=== PATIENT | male | born 1940 | race Native Hawaiian/Other Pacific Islander ===

== ENCOUNTER 2019-01-02 19:51 | Observation (INO) | payer MEDICARE, OTHER ==
--- NOTE | 2019-01-02 20:02 | Emergency Department Report ---
Blank Doc - Documentation Documentation: 78-year-old male that presents with slurred speech, abnormal gait, and some what altered. Granddaughter stated this happened intermittently 3 times today and came to the ED. This initial assessment/diagnostic orders/clinical plan/treatment(s) is/are subject to change based on patient's health status, clinical progression and re- assessment by fellow clinical providers in the ED. Further treatment and workup at subsequent clinical providers discretion. Patient/guardians urged not to elope from the ED as their condition may be serious if not clinically assessed and managed. Initial orders include: 1- Patient sent to MAIN ED for further evaluation and treatment 2- code stroke initiated
[2019-01-02 20:21] LABS: Hematocrit 38.3 % (35.5-45.6); Hemoglobin 13.1 gm/dl (11.8-15.2); Lymphocytes % (Auto) 23.6 % (13.4-35.0); Mean Corpuscular HGB Conc 34 % (32-34); Mean Corpuscular Volume 95 fl (84-94); Platelet Count 240 K/mm3 (140-440); Red Blood Count 4.03 M/mm3 (3.65-5.03); Red Cell Distribution Width 13.3 % (13.2-15.2)
[2019-01-02 20:22] LABS: Basophils % (Auto) 0.2 % (0.0-1.8); Eosinophils # (Auto) 0.1 K/mm3 (0.0-0.4); Eosinophils % (Auto) 1.2 % (0.0-4.3); Lymphocytes # (Auto) 2.1 K/mm3 (1.2-5.4); Monocytes # (Auto) 0.7 K/mm3 (0.0-0.8); Monocytes % (Auto) 8.4 % (0.0-7.3)
[2019-01-02 20:26] LABS: INR 0.96 (0.87-1.13)
[2019-01-02 20:27] LABS: Partial Thromboplastin Time 27.6 Sec. (24.2-36.6); Thrombin Time 16.8 Sec. (15.1-19.6)
--- NOTE | 2019-01-02 20:42 | Cat Scan Report ---
CT head/brain wo con INDICATION / CLINICAL INFORMATION: 78 years Male; Stroke symptoms. TECHNIQUE: Routine CT head without contrast. All CT scans at this location are performed using CT dos e reduction for ALARA by means of automated exposure control. COMPARISON: None. FINDINGS: BRAIN / INTRACRANIAL CONTENTS: There is milder cerebral white matter disease which is nonspecific tho ugh most compatible with microvascular angiopathy. The findings are greater on the left at. However, there is no clear CT evidence of significant mass effect. There is mild cerebral atrophy with corresp onding mild prominence of the ventricular system. There is no CT evidence of acute intracranial hemor rhage. ORBITS: No significant abnormality of visualized orbits. SINUSES / MASTOIDS: There is sclerosis involving left mastoid air cells likely related to chronic agustina ctive inflammatory changes. CRANIOCERVICAL JUNCTION: No significant abnormality. ADDITIONAL FINDINGS: There is relative soft tissue prominence along the left cavernous sinus which ap pears reflect developmental tortuosity left ICA. IMPRESSION: 1. 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 The study was specified as code stroke and called emergently to Dr. Fraga in the ER at 7:35 PM [facility] standard time. Signer Name: Rafael Moncada MD Signed: 01/02/2019 8:37 PM Workstation Name: [id number]
[2019-01-02 20:49] LABS: Alanine Aminotransferase 15 units/L (7-56); BUN/Creatinine Ratio 28; Blood Urea Nitrogen 28 mg/dL (9-20); Calcium 9.6 mg/dL (8.4-10.2); Creatine Kinase MB 5.1 ng/mL (0.0-4.0); Hemolysis Index 29
[2019-01-02] MEDS ORDERED: ASPIRIN 81 MG TAB CHEW PO ONE (21:03)
--- NOTE | 2019-01-02 21:30 | Emergency Department Report ---
HPI - General Chief Complaint: Neuro Symptoms/Deficit Time Seen by Provider: 01/02/19 20:13 - HPI HPI: 78-year-old male presents to the emergency department from home as a code stroke. Per the family, the patient has been having some slurred speech and confusion. The exact last known well time is debatable. Family says that there were some signs of confusion earlier in the day. For example, the patient's says that he turned to left when he meant to turn right. There also may have been some slurred speech earlier in the day as well. However it sounds like there was some level of resolution. At around 6 PM this evening family noticed the slurred speech and confusion and brought him in for further evaluation. He has a past medical history of insulin-dependent diabetes. ED Past Medical Hx - Past Medical History Previous Medical History?: Yes Hx Diabetes: Yes - Surgical History Past Surgical History?: No - Medications Home Medications: Home Medications Medication Instructions Recorded Confirmed Last Taken Type Aspirin [Aspirin BABY CHEW TAB] 81 mg PO QDAY 01/03/19 01/03/19 01/02/19 History Metformin HCl [metFORMIN] 1,000 mg PO BID 01/03/19 01/03/19 01/02/19 History ED Review of Systems ROS: Stated complaint: POSS STROKE Other details as noted in HPI Comment: All other systems reviewed and negative Constitutional: denies: chills, fever Eyes: denies: eye pain, vision change ENT: denies: ear pain, throat pain Respiratory: denies: cough, shortness of breath Cardiovascular: denies: chest pain, palpitations Gastrointestinal: denies: abdominal pain, vomiting Genitourinary: denies: dysuria, discharge Musculoskeletal: denies: back pain, arthralgia Skin: denies: rash, lesions Neurological: confusion, other (slurred speech) Physical Exam - Physical Exam Vital Signs: Vital Signs 01/02/19 01/02/19 20:01 20:20 Temperature 98.1 F 98.2 F Pulse Rate 72 80 Respiratory 18 15 Rate Blood Pressure 154/68 Blood Pressure 144/75 [Right] O2 Sat by Pulse 97 100 Oximetry Physical Exam: GENERAL: The patient is well-developed well-nourished. HENT: Normocephalic. Atraumatic. Patient has moist mucous membranes. EYES: Extraocular motions are intact. Pupils equal reactive to light bilaterally. NECK: Supple. Trachea is midline. CHEST/LUNGS: Clear to auscultation. There is no respiratory distress noted. HEART/CARDIOVASCULAR: Regular. There is no tachycardia. There is no murmur. ABDOMEN: Abdomen is soft, nontender. Patient has normal bowel sounds. There is no abdominal distention. SKIN: Skin is warm and dry. NEURO: The patient is awake, alert, and cooperative. The patient has no focal neurologic deficits. There is slightly slurred speech. Mild left-sided nasolabial full paresis. No pronator drift. MUSCULOSKELETAL: There is no tenderness or deformity. There is no evidence of acute injury. ED Course Vital Signs 01/02/19 01/02/19 20:01 20:20 Temperature 98.1 F 98.2 F Pulse Rate 72 80 Respiratory 18 15 Rate Blood Pressure 154/68 Blood Pressure 144/75 [Right] O2 Sat by Pulse 97 100 Oximetry - Consultations Consultation #1: This patient was seen by the telemedicine neurologist, Dr. Navas as soon as he returned from CT imaging of the head. The neurologist gave the patient an NIH stroke scale of 3. The decision was made between the family and neurology that TPA should not be given. There is no obvious last known well time and it may have been as early as as this morning. He did not feel that CT angiography of the head and neck was necessary at this time as there is a low suspicion for a large vessel occlusion. However he does recommend admission to the hospital for further stroke workup including MRI of the brain. 01/03/19 03:12 ED Medical Decision Making - Lab Data Result diagrams: 01/02/19 20:05 01/02/19 20:05 - EKG Data -: EKG Interpreted by Mt EKG shows normal: sinus rhythm, axis, intervals, QRS complexes, ST-T waves Rate: normal - EKG Data When compared to previous EKG there are: previous EKG unavailable Interpretation: normal EKG - Radiology Data Radiology results: report reviewed CT head/brain wo con INDICATION / CLINICAL INFORMATION: 78 years Male; Stroke symptoms. TECHNIQUE: Routine CT head without contrast. All CT scans at this location are performed using CT dose reduction for ALARA by means of automated exposure control. COMPARISON: None. FINDINGS: BRAIN / INTRACRANIAL CONTENTS: There is milder cerebral white matter disease which is nonspecific though most compatible with microvascular angiopathy. The findings are greater on the left at. However, there is no clear CT evidence of significant mass effect. There is mild cerebral atrophy with corresponding mild prominence of the ventricular system. There is no CT evidence of acute intracranial hemorrhage. ORBITS: No significant abnormality of visualized orbits. SINUSES / MASTOIDS: There is sclerosis involving left mastoid air cells likely related to chronic reactive inflammatory changes. CRANIOCERVICAL JUNCTION: No significant abnormality. ADDITIONAL FINDINGS: There is relative soft tissue prominence along the left cavernous sinus which appears reflect developmental tortuosity left ICA. IMPRESSION: 1. 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 - Medical Decision Making This patient presents as a code stroke after he had some slurring of his speech and some confusion. They're to fully was a different starting at about 6 PM this evening but there was also some signs of possible confusion earlier in the day. Stat CT scan of the head without contrast was completed that does not show any bleed, ischemic areas or any other acute process. Patient's labs have been unremarkable except for some mild hyperglycemia without signs of diabetic k etoacidosis. He was given a full dose aspirin. Neurology did not feel was necessary to get CTA of the head and neck but does recommend admission for MRI and further evaluation. He was accepted for admission by the hospitalist service and Dr Wyman. - Differential Diagnosis CVA, TIA, Hypoglycemia, Dysrythmia Critical Care Time: No Critical care attestation.: If time is entered above; I have spent that time in minutes in the direct care of this critically ill patient, excluding procedure time. ED Disposition Clinical Impression: Hyperglycemia Stroke Qualifiers: CVA mechanism: unspecified Qualified Code(s): I63.9 - Cerebral infarction, unspecified Disposition: OP ADMIT IP TO THIS HOSP Is pt being admited?: Yes Condition: Fair Time of Disposition: 23:04
--- NOTE | 2019-01-02 22:12 | Emergency Department Report ---
HPI - General Chief Complaint: Neuro Symptoms/Deficit Time Seen by Provider: 01/02/19 20:13 - HPI HPI: [facility] Date of Service: 01/02/2019 20:15:02 History of Present Illness: Patient is a 78 year old Male. Patient was brought by EMS for symptoms of AMS Patient with hx of diabetes on insulin and metformin presents with concern for stroke sxs. He had spell this am with drifting the car to the right rather than keeping straight and acting like he was hard of hearing. It is unclear by daughter if he was completely resolved but she noted a obvious difference around 1800 when he was garbled with his speech and appearing confused. His sxs have improved while in ED but she states he is still slurring his words. On exam he has left facial asymmetry as well but family never made mention of this from flakito salguero and he has slight left arm clumsiness as well and ? numbness. CT scan head was negative per my review and radiology as well. ED Past Medical Hx - Past Medical History Previous Medical History?: Yes Hx Diabetes: Yes - Surgical History Past Surgical History?: No ED Review of Systems ROS: Stated complaint: POSS STROKE Other details as noted in HPI Constitutional: denies: chills, fever Eyes: denies: eye pain, vision change ENT: denies: ear pain, throat pain Respiratory: denies: cough, shortness of breath Cardiovascular: denies: chest pain, palpitations Gastrointestinal: denies: abdominal pain, vomiting Genitourinary: denies: dysuria, discharge Musculoskeletal: denies: back pain, arthralgia Skin: denies: rash, lesions Neurological: confusion, other (slurred speech) Physical Exam - Physical Exam Vital Signs: Vital Signs 01/02/19 01/02/19 20:01 20:20 Temperature 98.1 F 98.2 F Pulse Rate 72 80 Respiratory 18 15 Rate Blood Pressure 154/68 Blood Pressure 144/75 [Right] O2 Sat by Pulse 97 100 Oximetry Physical Exam: CT head showed no acute hemorrhage or acute core infarct. CT head was reviewed. Examination: 1A: Level of Consciousness - Alert; keenly responsive + 0 1B: Ask Month and Age - Both Questions Right + 0 1C: Blink Eyes & Squeeze Hands - Performs Both Tasks + 0 2: Test Horizontal Extraocular Movements - Normal + 0 3: Test Visual Arguelles - No Visual Loss + 0 4: Test Facial Palsy (Use Grimace if Obtunded) - Minor paralysis (flat nasolabial fold, smile asymetry) + 1 5A: Test Left Arm Motor Drift - No Drift for 10 Seconds + 0 5B: Test Right Arm Motor Drift - No Drift for 10 Seconds + 0 6A: Test Left Leg Motor Drift - No Drift for 5 Seconds + 0 6B: Test Right Leg Motor Drift - No Drift for 5 Seconds + 0 7: Test Limb Ataxia (FNF/Heel-Monsivais) - Ataxia in 1 Limb + 1 8: Test Sensation - Normal; No sensory loss + 0 9: Test Language/Aphasia - Normal; No aphasia + 0 10: Test Dysarthria - Mild-Moderate Dysarthria: Slurring but can be understood + 1 11: Test Extinction/Inattention - No abnormality + 0 NIHSS Score: 3 ED Course Vital Signs 01/02/19 01/02/19 20:01 20:20 Temperature 98.1 F 98.2 F Pulse Rate 72 80 Respiratory 18 15 Rate Blood Pressure 154/68 Blood Pressure 144/75 [Right] O2 Sat by Pulse 97 100 Oximetry ED Medical Decision Making - Lab Data Result diagrams: 01/02/19 20:05 01/02/19 20:05 - Medical Decision Making Impression: RO Acute Ischemic Stroke Right Hemispheric Comments: NOT ISACC candidate as exam is not correlating with LVO and nihss 3 Metrics: Last Known Well: 01/02/2019 10:00:00 [facility] Notification Time: 01/02/2019 20:14:32 Arrival Time: 01/02/2019 19:51:00 Stamp Time: 01/02/2019 20:15:02 Time First Login Attempt: 01/02/2019 20:23:00 Video Start Time: 01/02/2019 20:23:00 Symptoms: AMS NIHSS Start Assessment Time: 01/02/2019 22:24:00 Patient is not a candidate for tPA. Patient was not deemed candidate for tPA thrombolytics because of Last Well Known Above 4.5 Hours. Video End Time: 01/02/2019 20:52:00 CT head showed no acute hemorrhage or acute core infarct. CT head was reviewed. Radiologist was not called back for review of advanced imaging because not ordered ER Physician notified of the decision on thrombolytics management on 01/02/2019 20:52:00 Our recommendations are outlined below. Recommendations: Activate Stroke Protocol Admission/Order Set Stroke/Telemetry Floor Neuro Checks Bedside Swallow Eval DVT Prophylaxis IV Fluids, Normal Saline Head of Bed Below 30 Degrees Euglycemia and Avoid Hyperthermia (PRN Acetaminophen) Antiplatelet Therapy Recommended Recommended Scan: MRI Head Without Contrast MRA Head Without Contrast Carotid Dopplers Echocardiogram - Transthoracic Echocardiogram Therapies: Physical Therapy, Occupational Therapy, Speech Therapy Assessment When Applicable Dysphaghia Screen: Swallow Evaluation, Bedside DVT prophylaxis: Choice of Primary Team Disposition: If needed can consider inpatient neurology consultation Sign Out: Discussed with Emergency Department Provider Patient was informed the Neurology Consult would happen via TeleHealth consult by way of interactive audio and video telecommunications and consented to receiving care in this manner. Due to the immediate potential for life-threatening deterioration due to un derlying acute neurologic illness, I spent 35 minutes providing critical care. This time includes time for face to face visit via telemedicine, review of medical records, imaging studies and discussion of findings with providers, the patient and/or family. Dr Filemon Navas [facility] Critical care attestation.: If time is entered above; I have spent that time in minutes in the direct care of this critically ill patient, excluding procedure time. ED Disposition Clinical Impression: Stroke Disposition: -09 OP ADMIT IP TO THIS HOSP Is pt being admited?: Yes Does the pt Need Aspirin: Yes Condition: Stable
[2019-01-02 23:08] LABS: Bilirubin,Urine NEG (Negative); Blood,Urine NEG (Negative); Color,Urine Yellow (Yellow); Mucus,Urine FEW /HPF; Protein,Urine <15 mg/dL mg/dL (Negative); Urobilinogen,Urine < 2.0 mg/dL (<2.0)
[2019-01-02] MEDS ORDERED: MAGNESIUM HYDROXIDE (MOM) ORAL LIQD UDC PO PRN (23:29)
[2019-01-02] MEDS ORDERED: ONDANSETRON 4 MG/2 ML INJ IV PRN (23:29)
[2019-01-02] MEDS ORDERED: ACETAMINOPHEN 325 MG TAB PO PRN (23:29)
--- NOTE | 2019-01-02 23:33 | History and Physical Report ---
History of Present Illness Date of examination: 01/02/19 History of present illness: 78-year-old man at a history of diabetes comes emergency room for evaluation. Family is at bedside states that he was disoriented this morning and while he was taking his to work, he made two left turns instead of going right. At 6 family was noted to have slurred speech, confuse, the symptoms lasted for 30 minutes and then recovered around 7 PM Review Of Systems: Constitutional: no weight loss, fever, chills Ears, eyes, nose, mouth and throat: no nasal congestion, no nasal discharge, no sinus pressure, blurry vision, diplopia Neck: No neck pain or rigidity. Cardiovascular: No palpitations, chest pain Respiratory: No shortness of breath, cough Gastrointestinal: No hematochezia, abdominal pain Genitourinary : no dysuria, frequency Musculoskeletal: no muscle ache , joint pain Integumentary: no rash, no pruritis Neurological: no parathesias, focal weakness Endocrine: no cold or heat intolerance, no polyuria or polydipsia Hematologic/Lymphatic: no easy bruising, no easy bleeding, no gland swelling Allergic/Immunologic: no urticaria, no angioedema. PAST MEDICAL HISTORY:diabetes PAST SURGICAL HISTORY: None FAMILY HISTORY:hypertension, diabetes SOCIAL HISTORY: Denies tobacco, drugs, alcohol Medications and Allergies Allergies Allergy/AdvReac Type Severity Reaction Status Date / Time No Known Allergies Allergy Verified 01/02/19 23:34 Exam - Physical Exam Narrative exam: General Apperance: The patient sitting in bed no acute distress HEENT: Normocephalic, atraumatic. Pupils equally round and reactive to light, extraocular movement intact, and no sclericterus or JVD or thyromegaly or nodul e. Neck supple, no carotid bruit, mucous membranes moist, no exudate or erythema Heart: S1-S2, regular is rhythm Lungs: Clear to auscultation bilaterally, breathing comfortable Abdomen: Positive bowel sounds, soft, nontender, nondistended, no organomegaly Extremities: No edema cyanosis clubbing Skin: no rash, nodule, warm and dry Neuro:CN 2 -12 intact, motor/sensory intact, speech is fluent - Constitutional Vitals: Temp Pulse Resp BP Pulse Ox 98.2 F 80 15 144/75 100 01/02/19 20:20 01/02/19 20:20 01/02/19 20:20 01/02/19 20:20 01/02/19 20:20 Results - Labs CBC & Chem 7: 01/02/19 20:05 01/02/19 20:05 Labs: Abnormal lab results 01/02/19 01/02/19 01/02/19 Range/Units 20:05 20:05 20:12 MCV 95 H (84-94) fl [place] % (Auto) 8.4 H (0.0-7.3) % BUN 28 H (9-20) mg/dL Glucose 221 H (75-100) mg/dL POC Glucose 223 H (70-105) Total Creatine Kinase 211 H (55-170) units/L CK-MB (CK-2) 5.1 H (0.0-4.0) ng/mL - Imaging and Cardiology CT Scan - head: report reviewed Assessment and Plan Assessment CVA Diabetes Plan Admit to medicine Obtain MRI of the head, and neck, echo Start aspirin, statin IV hydralazine as needed for blood pressure control Consult neurology, physical and occupational, speech therapy DVT prophylaxis
[2019-01-02] MEDS: SODIUM CHLORIDE 0.45% 1000 ML 1,000 ML IV SCH (23:45)
[2019-01-03] MEDS ORDERED: DEXTROSE 50% IN WATER (25GM) 50 ML SYRINGE IV PRN (00:24)
[2019-01-03 04:48] LABS: Chol/HDL Ratio 3.16 %
[2019-01-03] MEDS: INSULIN LISPRO 100 UNIT/ML SUB-Q SCH ×4 (08:36→21:39)
[2019-01-03] MEDS ORDERED: ASPIRIN 325 MG TAB PO SCH (10:00)
--- NOTE | 2019-01-03 10:24 | Magnetic Resonance Report ---
MRI BRAIN WITHOUT CONTRAST INDICATION / CLINICAL INFORMATION: stroke. Slurred speech, confusion TECHNIQUE: Multisequence, multiplanar images were obtained. COMPARISON: CT head dated 01/02/2019 FINDINGS: CEREBRAL and CEREBELLAR HEMISPHERES: A 3 mm focus of diffusion restriction is suspected in the inferi or cerebellar vermis on diffusion image 10. No other areas of diffusion restriction are identified. N o evidence for hemorrhage, mass effect, large chronic infarct or extra-axial fluid collection. Mild d iffuse volume loss appears age appropriate. Minimal nonspecific chronic periventricular white matter changes. VENTRICLES: Normal in size and configuration for age. VISUALIZED ORBITS: No significant abnormality. VISUALIZED PARANASAL SINUSES: Mild mucosal thickening is noted throughout all paranasal sinuses. No f luid level or opacification. ADDITIONAL FINDINGS: None. IMPRESSION: 3 mm focus of subacute ischemia in the anterior cerebellar vermis is suspected. Age appropriate volume loss and chronic white matter changes. Signer Name: Yoel Zendejas Jr, MD Signed: 01/03/2019 10:20 AM Workstation Name: [id number]
--- NOTE | 2019-01-03 10:25 | Magnetic Resonance Report ---
MRA HEAD WITHOUT CONTRAST HISTORY: Stroke, confusion, slurred speech COMPARISON: None. TECHNIQUE: Routine MRA of the head is performed. 3-D/MIP reformats postprocessed. CONTRAST: None. FINDINGS: Intracranial vertebral arteries: No significant abnormality. Basilar artery: No significant abnormality. Posterior cerebral arteries: No significant abnormality. Intracranial internal carotid arteries: No significant abnormality. Anterior cerebral arteries: No significant abnormality. Middle cerebral arteries: No significant abnormality. Additional findings: None. IMPRESSION: 1. No significant abnormality. Signer Name: Yoel Zendejas Jr, MD Signed: 01/03/2019 10:21 AM Workstation Name: [id number]
--- NOTE | 2019-01-03 14:33 | Progress Note ---
Assessment and Plan Assessment and plan: CVA - CT head is negative, MRI showed 3 mm focus of subacute ischemia in the anterior cerebellar vermis is suspected - Patient is on aspirin and statin - Echo is normal - Neuro evaluation is pending - PT/OT evaluation is pending Diabetes mellitus - Sliding scale insulin, ADA diet, adjust insulin as needed DVT prophylaxis - SCDs for now. History Interval history: Patient was seen and evaluated this morning, patient symptoms resolved. patient is doing well. Hospitalist Physical - Physical exam Narrative exam: Not in cardiopulmonary distress. The patient appeared well nourished and normally developed. Vital signs as documented. Head exam is unremarkable. No scleral icterus . Neck is without jugular venous distension, thyromegaly, or carotid bruits. Lungs are clear to auscultation. Cardiac exam reveals regular rate and Rhythm. Abdominal exam reveals normal bowel sounds, nontender, no organomegaly. Extremities are nonedematous and both femoral and pedal pulses are normal. FIELD SPECIALIST: Alert and oriented 3. No focal weakness. - Constitutional Vitals: Temp Pulse Resp BP Pulse Ox 98.2 F 65 18 120/56 97 01/03/19 11:21 01/03/19 11:21 01/03/19 11:21 01/03/19 11:21 01/03/19 11:21 Results - Labs CBC & Chem 7: 01/02/19 20:05 01/02/19 20:05 Labs: Laboratory Last Values WBC 8.8 K/mm3 (4.5-11.0) 01/02/19 20:05 RBC 4.03 M/mm3 (3.65-5.03) 01/02/19 20:05 Hgb 13.1 gm/dl (11.8-15.2) 01/02/19 20:05 Hct 38.3 % (35.5-45.6) 01/02/19 20:05 MCV 95 fl (84-94) H 01/02/19 20:05 MCH 32 pg (28-32) 01/02/19 20:05 MCHC 34 % (32-34) 01/02/19 20:05 RDW 13.3 % (13.2-15.2) 01/02/19 20:05 Plt Count 240 K/mm3 (140-440) 01/02/19 20:05 Lymph % (Auto) 23.6 % (13.4-35.0) 01/02/19 20:05 [place] % (Auto) 8.4 % (0.0-7.3) H 01/02/19 20:05 Eos % (Auto) 1.2 % (0.0-4.3) 01/02/19 20:05 Baso % (Auto) 0.2 % (0.0-1.8) 01/02/19 20:05 Lymph # 2.1 K/mm3 (1.2-5.4) 01/02/19 20:05 [place] # 0.7 K/mm3 (0.0-0.8) 01/02/19 20:05 Eos # 0.1 K/mm3 (0.0-0.4) 01/02/19 20:05 Baso # 0.0 K/mm3 (0.0-0.1) 01/02/19 20:05 Seg Neutrophils % 66.6 % (40.0-70.0) 01/02/19 20:05 Seg Neutrophils # 5.9 K/mm3 (1.8-7.7) 01/02/19 20:05 PT 12.7 Sec. (12.2-14.9) 01/02/19 20:05 INR 0.96 (0.87-1.13) 01/02/19 20:05 APTT 27.6 Sec. (24.2-36.6) 01/02/19 20:05 Thrombin Time 16.8 Sec. (15.1-19.6) 01/02/19 20:05 Sodium 138 mmol/L (137-145) 01/02/19 20:05 Potassium 4.9 mmol/L (3.6-5.0) 01/02/19 20:05 Chloride 102.1 mmol/L (98-107) 01/02/19 20:05 Carbon Dioxide 26 mmol/L (22-30) 01/02/19 20:05 Anion Gap 15 mmol/L 01/02/19 20:05 BUN 28 mg/dL (9-20) H 01/02/19 20:05 Creatinine 1.0 mg/dL (0.8-1.5) 01/02/19 20:05 Estimated GFR > 60 ml/min 01/02/19 20:05 BUN/Creatinine Ratio 28 % 01/02/19 20:05 Glucose 221 mg/dL (75-100) H 01/02/19 20:05 POC Glucose 112 (70-105) H 01/03/19 11:26 Calcium 9.6 mg/dL (8.4-10.2) 01/02/19 20:05 Total Bilirubin < 0.20 mg/dL (0.1-1.2) 01/02/19 20:05 AST 18 units/L (5-40) 01/02/19 20:05 ALT 15 units/L (7-56) 01/02/19 20:05 Alkaline Phosphatase 75 units/L (35-129) 01/02/19 20:05 Ammonia 29.0 umol/L (25-60) 01/02/19 20:58 Total Creatine Kinase 211 units/L (55-170) H 01/02/19 20:05 CK-MB (CK-2) 5.1 ng/mL (0.0-4.0) H 01/02/19 20:05 CK-MB (CK-2) Rel Index 2.4 (0-4) 01/02/19 20:05 Troponin T < 0.010 ng/mL (0.00-0.029) 01/02/19 20:05 Total Protein 7.7 g/dL (6.3-8.2) 01/02/19 20:05 Albumin 4.0 g/dL (3.9-5) 01/02/19 20:05 Albumin/Globulin Ratio 1.1 % 01/02/19 20:05 Triglycerides 52 mg/dL (2-149) 01/03/19 03:37 Cholesterol 152 mg/dL (50-199) 01/03/19 03:37 LDL Cholesterol Direct 109 mg/dL (50-130) 01/03/19 03:37 HDL Cholesterol 48 mg/dL (40-59) 01/03/19 03:37 Cholesterol/HDL Ratio 3.16 % 01/03/19 03:37 TSH 2.150 mlU/mL (0.270-4.200) 01/02/19 20:58 Urine Color Yellow (Yellow) 01/02/19 22:50 Urine Turbidity Slightly-cloudy (Clear) 01/02/19 22:50 Urine pH 7.0 (5.0-7.0) 01/02/19 22:50 Ur Specific [place] 1.019 (1.003-1.030) 01/02/19 22:50 Urine Protein <15 mg/dl mg/dL (Negative) 01/02/19 22:50 Urine Glucose (UA) Neg mg/dL (Negative) 01/02/19 22:50 Urine Ketones Neg mg/dL (Negative) 01/02/19 22:50 Urine Blood Neg (Negative) 01/02/19 22:50 Urine Nitrite Neg (Negative) 01/02/19 22:50 Urine Bilirubin Neg (Negative) 01/02/19 22:50 Urine Urobilinogen < 2.0 mg/dL (<2.0) 01/02/19 22:50 Ur Leukocyte Esterase Neg (Negative) 01/02/19 22:50 Urine WBC (Auto) 1.0 /HPF (0.0-6.0) 01/02/19 22:50 Urine RBC (Auto) 4.0 /HPF (0.0-6.0) 01/02/19 22:50 U Epithel Cells (Auto) < 1.0 /HPF (0-13.0) 01/02/19 22:50 Urine Mucus Few /HPF 01/02/19 22:50 Urine Yeast (Budding) 1+ /HPF 01/02/19 22:50 Active Medications - Current Medications Current Medications: Generic Name Dose Route Start Last Admin Trade Name Freq PRN Reason Stop Dose Admin Acetaminophen 650 mg 01/02/19 23:29 01/02/19 23:49 Tylenol PO 650 mg Q4H PRN Administration Pain, Mild (1-3) Aspirin 325 mg 01/03/19 10:00 01/03/19 11:17 Aspirin PO 325 mg QDAY RUSH Administration Atorvastatin Calcium 40 mg 01/03/19 22:00 Lipitor PO QHS RUSH Bisacodyl 10 mg 01/02/19 23:29 Dulcolax [place] QDAY PRN Constipation Dextrose 50 ml 01/03/19 00:24 D50w (25gm) Syringe IV Q30MIN PRN Hypoglycemia Protocol Sodium Chloride 1,000 mls @ 75 mls/hr 01/02/19 23:45 01/02/19 23:45 Nacl 0.45% 1000 Ml IV 75 mls/hr DIRECT RUSH Administration Insulin Human Lispro 0 unit 01/03/19 07:30 01/03/19 11:17 Humalog SUB-Q Not Given ACHS RUSH Protocol Magnesium Hydroxide 30 ml 01/02/19 23:29 Milk Of Magnesia PO Q4H PRN Constipation Ondansetron HCl 4 mg 01/02/19 23:29 Zofran IV Q8H PRN Nausea And Vomiting Sodium Chloride 10 ml 01/02/19 23:29 Sodium Chloride Flush Syringe 10 Ml IV PRN PRN LINE FLUSH
[2019-01-03] MEDS ORDERED: ATROPINE 0.4 MG/1 ML INJ IV ONE (16:42)
[2019-01-03] MEDS ORDERED: ATROPINE 0.4 MG/1 ML INJ IV PRN (16:46)
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
[2019-01-03] MEDS: SODIUM CHLORIDE 0.45% 1000 ML 1,000 ML IV SCH (18:43)
--- NOTE | 2019-01-03 21:07 | Cat Scan Report ---
NECK CT ANGIOGRAM 01/03/2019 HISTORY: Stroke FINDINGS: Contrast-enhanced CT angiographic images of the neck were obtained. In addition to the axia l images, sagittal and coronal reformatted images were obtained. In addition, 3 plane MIP reconstruct ions were produced. There is no evidence of carotid bifurcation stenosis. Vertebral arteries are normal. Visualized portions of the aortic arch are unremarkable. Soft tissue structures in the neck have a normal CT appearance. IMPRESSION: No significant abnormality. No evidence of carotid bifurcation stenosis or abnormality. NASCET like criteria were used in this evaluation. All CT scans at this location are performed using dose reduction to ALARA by means of automated expos ure control. Signer Name: Simone Morris MD Signed: 01/03/2019 9:03 PM Workstation Name: [id number]
[2019-01-04] MEDS: INSULIN LISPRO 100 UNIT/ML SUB-Q SCH ×2 (08:24→11:56)
--- NOTE | 2019-01-04 09:47 | Progress Note ---
Assessment and Plan Assessment and plan: CVA - CT head, CTA neck head is negative, MRI head showed 3 mm focus of subacute ischemia in the anterior cerebellar vermis is suspected - Patient is on aspirin and statin - Echo is normal - Neuro consult appreciated - PT/OT evaluation home with no need Diabetes mellitus - Sliding scale insulin, ADA diet, adjust insulin as needed DVT prophylaxis - SCDs for now. History Interval history: Patient was seen and evaluated this morning, patient symptoms resolved. patient is doing well. Hospitalist Physical - Physical exam Narrative exam: Not in cardiopulmonary distress. The patient appeared well nourished and normally developed. Vital signs as documented. Head exam is unremarkable. No scleral icterus . Neck is without jugular venous distension, thyromegaly, or carotid bruits. Lungs are clear to auscultation. Cardiac exam reveals regular rate and Rhythm. Abdominal exam reveals normal bowel sounds, nontender, no organomegaly. Extremities are nonedematous and both femoral and pedal pulses are normal. OFFSHORE DIVER: Alert and oriented 3. No focal weakness. - Constitutional Vitals: Temp Pulse Resp BP Pulse Ox 98.0 F 61 18 104/47 97 01/04/19 05:49 01/04/19 05:49 01/04/19 08:05 01/04/19 05:49 01/04/19 08:05 Results - Labs CBC & Chem 7: 01/02/19 20:05 01/02/19 20:05 Labs: Laboratory Last Values WBC 8.8 K/mm3 (4.5-11.0) 01/02/19 20:05 RBC 4.03 M/mm3 (3.65-5.03) 01/02/19 20:05 Hgb 13.1 gm/dl (11.8-15.2) 01/02/19 20:05 Hct 38.3 % (35.5-45.6) 01/02/19 20:05 MCV 95 fl (84-94) H 01/02/19 20:05 MCH 32 pg (28-32) 01/02/19 20:05 MCHC 34 % (32-34) 01/02/19 20:05 RDW 13.3 % (13.2-15.2) 01/02/19 20:05 Plt Count 240 K/mm3 (140-440) 01/02/19 20:05 Lymph % (Auto) 23.6 % (13.4-35.0) 01/02/19 20:05 [place] % (Auto) 8.4 % (0.0-7.3) H 01/02/19 20:05 Eos % (Auto) 1.2 % (0.0-4.3) 01/02/19 20:05 Baso % (Auto) 0.2 % (0.0-1.8) 01/02/19 20:05 Lymph # 2.1 K/mm3 (1.2-5.4) 01/02/19 20:05 [place] # 0.7 K/mm3 (0.0-0.8) 01/02/19 20:05 Eos # 0.1 K/mm3 (0.0-0.4) 01/02/19 20:05 Baso # 0.0 K/mm3 (0.0-0.1) 01/02/19 20:05 Seg Neutrophils % 66.6 % (40.0-70.0) 01/02/19 20:05 Seg Neutrophils # 5.9 K/mm3 (1.8-7.7) 01/02/19 20:05 PT 12.7 Sec. (12.2-14.9) 01/02/19 20:05 INR 0.96 (0.87-1.13) 01/02/19 20:05 APTT 27.6 Sec. (24.2-36.6) 01/02/19 20:05 Thrombin Time 16.8 Sec. (15.1-19.6) 01/02/19 20:05 Sodium 138 mmol/L (137-145) 01/02/19 20:05 Potassium 4.9 mmol/L (3.6-5.0) 01/02/19 20:05 Chloride 102.1 mmol/L (98-107) 01/02/19 20:05 Carbon Dioxide 26 mmol/L (22-30) 01/02/19 20:05 Anion Gap 15 mmol/L 01/02/19 20:05 BUN 28 mg/dL (9-20) H 01/02/19 20:05 Creatinine 1.0 mg/dL (0.8-1.5) 01/02/19 20:05 Estimated GFR > 60 ml/min 01/02/19 20:05 BUN/Creatinine Ratio 28 % 01/02/19 20:05 Glucose 221 mg/dL (75-100) H 01/02/19 20:05 POC Glucose 138 (70-105) H 01/04/19 08:26 Calcium 9.6 mg/dL (8.4-10.2) 01/02/19 20:05 Total Bilirubin < 0.20 mg/dL (0.1-1.2) 01/02/19 20:05 AST 18 units/L (5-40) 01/02/19 20:05 ALT 15 units/L (7-56) 01/02/19 20:05 Alkaline Phosphatase 75 units/L (35-129) 01/02/19 20:05 Ammonia 29.0 umol/L (25-60) 01/02/19 20:58 Total Creatine Kinase 211 units/L (55-170) H 01/02/19 20:05 CK-MB (CK-2) 5.1 ng/mL (0.0-4.0) H 01/02/19 20:05 CK-MB (CK-2) Rel Index 2.4 (0-4) 01/02/19 20:05 Troponin T < 0.010 ng/mL (0.00-0.029) 01/02/19 20:05 Total Protein 7.7 g/dL (6.3-8.2) 01/02/19 20:05 Albumin 4.0 g/dL (3.9-5) 01/02/19 20:05 Albumin/Globulin Ratio 1.1 % 01/02/19 20:05 Triglycerides 52 mg/dL (2-149) 01/03/19 03:37 Cholesterol 152 mg/dL (50-199) 01/03/19 03:37 LDL Cholesterol Direct 109 mg/dL (50-130) 01/03/19 03:37 HDL Cholesterol 48 mg/dL (40-59) 01/03/19 03:37 Cholesterol/HDL Ratio 3.16 % 01/03/19 03:37 TSH 2.150 mlU/mL (0.270-4.200) 01/02/19 20:58 Urine Color Yellow (Yellow) 01/02/19 22:50 Urine Turbidity Slightly-cloudy (Clear) 01/02/19 22:50 Urine pH 7.0 (5.0-7.0) 01/02/19 22:50 Ur Specific [place] 1.019 (1.003-1.030) 01/02/19 22:50 Urine Protein <15 mg/dl mg/dL (Negative) 01/02/19 22:50 Urine Glucose (UA) Neg mg/dL (Negative) 01/02/19 22:50 Urine Ketones Neg mg/dL (Negative) 01/02/19 22:50 Urine Blood Neg (Negative) 01/02/19 22:50 Urine Nitrite Neg (Negative) 01/02/19 22:50 Urine Bilirubin Neg (Negative) 01/02/19 22:50 Urine Urobilinogen < 2.0 mg/dL (<2.0) 01/02/19 22:50 Ur Leukocyte Esterase Neg (Negative) 01/02/19 22:50 Urine WBC (Auto) 1.0 /HPF (0.0-6.0) 01/02/19 22:50 Urine RBC (Auto) 4.0 /HPF (0.0-6.0) 01/02/19 22:50 U Epithel Cells (Auto) < 1.0 /HPF (0-13.0) 01/02/19 22:50 Urine Mucus Few /HPF 01/02/19 22:50 Urine Yeast (Budding) 1+ /HPF 01/02/19 22:50 Active Medications - Current Medications Current Medications: Generic Name Dose Route Start Last Admin Trade Name Freq PRN Reason Stop Dose Admin Acetaminophen 650 mg 01/02/19 23:29 01/02/19 23:49 Tylenol PO 650 mg Q4H PRN Administration Pain, Mild (1-3) Aspirin 81 mg 01/04/19 10:00 01/04/19 09:24 Halfprin Ec PO 81 mg QDAY RUSH Administration Atorvastatin Calcium 40 mg 01/03/19 22:00 01/03/19 21:39 Lipitor PO 40 mg QHS RUSH Administration Atropine Sulfate 0.4 mg 01/03/19 16:46 Atropine IV ONCE PRN at bedside Bisacodyl 10 mg 01/02/19 23:29 Dulcolax [place] QDAY PRN Constipation Clopidogrel Bisulfate 75 mg 01/04/19 10:00 01/04/19 09:23 Plavix PO 75 mg QDAY RUSH Administration Dextrose 50 ml 01/03/19 00:24 D50w (25gm) Syringe IV Q30MIN PRN Hypoglycemia Protocol Sodium Chloride 1,000 mls @ 75 mls/hr 01/02/19 23:45 01/03/19 18:43 Nacl 0.45% 1000 Ml IV 75 mls/hr DIRECT RUSH Administration Insulin Human Lispro 0 unit 01/03/19 07:30 01/04/19 08:24 Humalog SUB-Q Not Given ACHS RUSH Protocol Magnesium Hydroxide 30 ml 01/02/19 23:29 Milk Of Magnesia PO Q4H PRN Constipation Ondansetron HCl 4 mg 01/02/19 23:29 Zofran IV Q8H PRN Nausea And Vomiting Sodium Chloride 10 ml 01/02/19 23:29 01/03/19 21:39 Sodium Chloride Flush Syringe 10 Ml IV 10 ml PRN PRN Administration LINE FLUSH
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
[2019-01-04] MEDS ORDERED: CLOPIDOGREL 75 MG TAB PO SCH (10:00)
[2019-01-04] MEDS ORDERED: ASPIRIN EC 81 MG TAB PO SCH (10:00)
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
[2019-01-04 12:46] VITALS: BP 139/54
== END 2019-01-04 13:54 | disposition home or self-care (01) ==
LOC: ED 19:51 → 4A 23:04
PROVIDERS: ADMIT Internal Medicine; ATTEND Internal Medicine
DX: E11.65 Type 2 diabetes mellitus with hyperglycemia (principal); I63.9 Cerebral infarction, unspecified; I44.1 Atrioventricular block, second degree; R41.0 Disorientation, unspecified; Z79.82 Long term (current) use of aspirin; Z79.84 Long term (current) use of oral hypoglycemic drugs; Z79.899 Other long term (current) drug therapy
CPT/HCPCS: 36415; 70450; 70498; 70544; 70551; 80053; 80061; 81001; 82140; 82550; 82553; 82962; 84443; 84484; 85025; 85610; 85670; 85730; 93005; 93010; 93306; 96361; 96372; 96374; 97161; 97165; 99284; A9270; G0378; J0461; J7030; Q9967